=== PATIENT | male | born 1955 | race Caucasian/White ===

== ENCOUNTER 2016-05-01 11:36 | Observation (INO) | payer OTHER ==
[~2016-05-01] VITALS: Ht 172.7 cm; Wt 99.3 kg
[~2016-05-01 11:36] MED LIST: ASPIRIN EC81 MG PO; BYDUREON2 MG INJECT; LANTUS100 UNIT/1 INJECT; LIPITOR10 MG PO; LISINOPRIL-HCT1 EACH PO; NEURONTIN100 MG PO; SYNTHROID100 MCG PO; VIAGRA50 MG PO; XIGDUO XR 10 M1 EAC1 PO
[2016-05-01] MEDS ORDERED: PRINIVIL10 MG PO (15:00)
[2016-05-01] MEDS ORDERED: XIGDUO XR 10 M1 EAC1 PO (15:02)
[2016-05-01] MEDS ORDERED: TRULICITY1.5 MG/0.5 INJECT ×2 (15:45→15:55)
== END 2016-05-02 10:05 | disposition short-term general hospital (02) ==
LOC: ER 11:36 → OBS 15:50
PROVIDERS: ADMIT Family Medicine
DX: K52.9 Noninfective gastroenteritis and colitis, unspecified (principal); E11.42 Type 2 diabetes mellitus with diabetic polyneuropathy; N28.9 Disorder of kidney and ureter, unspecified; E78.5 Hyperlipidemia, unspecified; I10 Essential (primary) hypertension; E66.9 Obesity, unspecified; G56.80 Other specified mononeuropathies of unspecified upper limb; Z79.82 Long term (current) use of aspirin; Z79.4 Long term (current) use of insulin; Z79.899 Other long term (current) drug therapy; Z98.890 Other specified postprocedural states; Z83.3 Family history of diabetes mellitus
CPT/HCPCS: G0378; J1815; J2405